=== PATIENT | female | born 1965 | race Caucasian/White ===

== ENCOUNTER 2017-03-10 13:59 | Emergency (ER) | payer BC ==
--- NOTE | 2017-03-10 15:43 | UC ---
Respiratory Complaint HPI - HPI Summary HPI Summary: 51 yo female with cough and fever x3 days has had similar symtpoms on and off x 1-2 months had pneumonia - History of Current Complaint Chief Complaint: UCRespiratory Stated Complaint: COUGH,BODYACHES Time Seen by Provider: 03/10/17 15:16 Hx Obtained From: Patient Hx Last Menstrual Period: 02/28/2017 Onset/Duration: Gradual Onset, Lasting Days Timing: Constant Severity Initially: Mild Severity Currently: Moderate Pain Intensity: 4 Pain Scale Used: 0-10 Numeric Character: Cough: Nonproductive Aggravating Factors: Nothing, Other Associated Signs And Symptoms: Positive: Fever, Chills - Allergies/Home Medications Allergies/Adverse Reactions: Allergies Allergy/AdvReac Type Severity Reaction Status Date / Time BEE STINGS Allergy Anaphylatic Uncoded 03/10/17 14:13 Shock Home Medications: Home Medications GuaiFENesin DM* [Robitussin DM*] 5 ml PO Q6H PRN 03/10/17 [History Confirmed ] PMH/Surg Hx/FS Hx/Imm Hx Previously Healthy: Yes - Surgical History Surgical History: Yes Surgery Procedure, Year, and Place: About 2001 RIGHT KNEE SURGERY - Family History Known Family History: Positive: Hypertension - Social History Alcohol Use: None Substance Use Type: None Smoking Status (MU): Never Smoked Tobacco Review of Systems Constitutional: Fever, Chills, Fatigue Skin: Negative Eyes: Negative ENT: Nasal Discharge, Sinus Congestion Respiratory: Cough Cardiovascular: Negative Gastrointestinal: Negative Genitourinary: Negative Motor: Negative Neurovascular: Negative Musculoskeletal: Negative Neurological: Negative Psychological: Negative Is Patient Immunocompromised?: No All Other Systems Reviewed And Are Negative: Yes Physical Exam Triage Information Reviewed: Yes Appearance: Well-Appearing, No Pain Distress, Well-Nourished Vital Signs: Initial Vital Signs Temp 101.2 F 03/10/17 14:15 Pulse 92 03/10/17 14:15 Resp 18 03/10/17 14:15 BP 140/94 03/10/17 14:15 Pulse Ox 96 03/10/17 14:15 Vital Signs Reviewed: Yes Eyes: Positive: Conjunctiva Clear ENT: Positive: Hearing grossly normal, Nasal drainage Neck: Positive: Supple, Nontender, No Lymphadenopathy Respiratory: Positive: Lungs clear, Normal breath sounds, No respiratory distress, No accessory muscle use Cardiovascular: Positive: RRR, No Murmur Musculoskeletal: Positive: ROM Intact, No Edema Neurological Exam: Normal Neurological: Positive: Alert UC Diagnostic Evaluation - Laboratory O2 Sat by Pulse Oximetry: 96 - normal/not hypoxic - Radiology Xray Interpretation: Positive (See Comments) - IMPRESSION: Alveolar consolidation at the RIGHT middle lobe concerning for pneumonia given Radiology Interpretation Completed By: Radiologist Respiratory Course/Dx - Differential Dx/Diagnosis Provider Diagnoses: pneumonia. Bronchospasm Discharge - Discharge Plan Condition: Stable Disposition: HOME Prescriptions: DOXYcycline CAP(*) [DOXYcycline 100MG CAP(*)] 100 mg PO BID #20 cap Patient Education Materials: Pneumonia (ED) Forms: *Work Release Referrals: Nasra Peacock MD [Primary Care Provider] - 2 Weeks (follow up chest xr is recommended by radiologist) Additional Instructions: use inhaler as directed recheck for new or worsening symptoms recheck Monday if still febrile
[2017-03-10] MEDS ORDERED: Albuterol 2.5 MG/3 ML NEB.SOL* (0.083%) INH ONE (15:46)
[2017-03-10] MEDS ORDERED: Ipratropium 0.5MG/2.5ML NEB* 0.5 MG/2.5 ML NEB.SOLN INH ONE (15:46)
--- NOTE | 2017-03-10 16:10 | RAD ---
INDICATION: Cough, fever. History of tobacco use. COMPARISON: June 20, 2007 TECHNIQUE: Dual energy PA and routine lateral views of the chest were obtained. REPORT: Unchanged small probable calcified granuloma at the RIGHT lower lung zone compared with the 2008 exam without concern. Mild alveolar consolidation at the RIGHT infrahilar level likely involving the RIGHT middle lobe concerning for pneumonia given the clinical context. Negative for pleural effusion or pneumothorax. The heart, pulmonary vasculature, and mediastinal contours are unremarkable. IMPRESSION: Alveolar consolidation at the RIGHT middle lobe concerning for pneumonia given the clinical context. Radiographic follow-up after therapy suggested to assess for resolution.
[2017-03-10] MEDS ORDERED: Albuterol HFA INHALER* 8 gm MDI INH ONE (16:50)
[2017-03-10 17:42] VITALS: BP 155/88
== END 2017-03-10 17:10 | disposition home or self-care (01) ==
LOC: UCEAST 13:59
DX: J18.9 Pneumonia, unspecified organism (principal); J98.01 Acute bronchospasm; Z91.030 Bee allergy status
CPT/HCPCS: 71046; 87502; 99212; A9270-GY; G0463; J7644

== ENCOUNTER 2017-10-03 16:47 | Emergency (ER) | payer BC, OTHER ==
--- OUTSIDE RECORDS SUMMARY | 2017-10-03 16:51 | XMS REPORT ---
:1965 External Reference #:[id number] Author Organization [facility] Address [address] [place] [address] Phone [phone] Care Team Providers Name Role Phone Martha Nj M.D. 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 Primary Care Physician Unavailable Payers Type Date Identification Numbers Payment Provider Subscriber Commercial Effective: Policy Number: [id number] [place] Plan Janette Roberts 2017 PayID: [id number] [address] [place] [address] Problems Date Description Provider Status Onset: 08/07/2017 Elevated blood-pressure reading without Martha Nj M.D. Active diagnosis of hypertension Onset: 08/07/2017 Obesity Martha jN M.D. Active Onset: 08/07/2017 Menopausal and postmenopausal disorders Martha Nj M.D. Active Onset: 08/17/2017 Impaired fasting glycaemia Martha Nj M.D. Active Onset: 08/17/2017 Hyperlipidemia Martha Nj M.D. Active Onset: 08/17/2017 Liver function tests abnormal Martha Nj M.D. Active Onset: 08/17/2017 Steatosis of liver Martha Nj M.D. Active Family History Date Family Member(s) Problem(s) Comments Father Diabetes Mellitus, II Father 80 Father Hypertension Father Hyperlipidemia Father Melanoma Father Sleep Apnea Mother No Current Problems Mother 76 Siblings 6 5 sis 1 bro First Brother Hypertension Social History Type Date Description Comments Marital Status . 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 [employer] Cigarette Use 08/07/2017 Former Cigarette Smoker 18-38, 1ppd ETOH Use Social Alcohol Smoking Patient is a former smoker Exercise Type/Frequency Exercises regularly walking 3x week Allergies, Adverse Reactions, Alerts Date Description Reaction Status Severity Comments 08/07/2017 NKDA active Medications Medication Date Status Form Strength Qnty SIG Indications Ordering Provider Dhea Active Apply To Unknown 00 Skin Daily Pregnenolone Active Apply To Unknown 00 Skin Daily Progesterone Active Apply To Unknown 00 Skin Daily Testosterone Active Apply To Unknown 00 Skin Daily Estradiol/Testos Active apply to Unknown terone 00 skin daily Biest Active Unknown 00 No Active 08/08/19 Hx Martha Medications 18 - [place], 09/20/19 M.DYousif 18 Progesterone Hx Capsules 100mg Unknown - 08/08/19 18 Vital Signs Date Vital Result Comment 09/19/2017 BP Systolic 136 mmHg BP Diastolic 80 mmHg Heart Rate 74 /min Body Temperature 97.9 F Respiratory Rate 16 /min Height 63.5 inches 5'3.50" Weight 198.00 lb BMI (Body Mass Index) 34.5 kg/m2 08/17/2017 BP Systolic 140 mmHg BP Diastolic 100 mmHg Heart Rate 88 /min Body Temperature 97.8 F Respiratory Rate 18 /min Height 63.5 inches 5'3.50" Weight 195.00 lb BMI (Body Mass Index) 34.0 kg/m2 08/07/2017 BP Systolic 130 mmHg BP Diastolic 92 mmHg Heart Rate 80 /min Body Temperature 98.2 F Height 63.5 inches 5'3.50" Weight 195.00 lb BMI (Body Mass Index) 34.0 kg/m2 Results Test Date Test Result H/L Range Note Xray 09/13/2017 CT Abdomen & Pelvis <pending> W/Contrast Comprehensive Metabolic 08/11/2017 Sodium 140 mEq/L 134-149 Prof Potassium 4.3 mEq/L 3.6-5.5 Chloride 101 mEq/L 94-112 Carbon Dioxide 21 mEq/L 21-32 Glucose 159 mg/dL High 70-105 1 BUN 12 mg/dL 6-26 Creatinine 0.7 mg/dL 0.6-1.4 BUN/Creat Ratio 17.1 CALC 8.0-36.0 Calcium 9.2 mg/dL 8.6-10.2 Total Protein 6.9 g/dL 6.4-8.3 Albumin 4.5 g/dL 3.8-5.5 Globulin 2.4 g/dL 2.0-4.8 A/G Ratio 1.9 CALC 0.6-2.3 Alk. Phosphatase 72 U/L 30-110 Alt (SGPT) 123 U/L High 7-35 2 Ast (Sgot) 61 U/L High 5-34 3 Total Bilirubin 0.5 mg/dL 0.2-1.3 GFR Non- >60 ml/min/1.73m^ >=60 GFR >60 ml/min/1.73m^ >=60 Lipid Profile 08/11/2017 Cholesterol 253 mg/dL High 120-200 Triglycerides 309 mg/dL High 30-200 HDL Cholesterol 46 mg/dL 30-85 LDL (Calculated) 145 CALC High 0-129 VLDL Cholesterol 62 mg/dL High 0-50 HDL Risk Factor 5.5 CALC High 0.0-4.4 Laboratory test finding 08/11/2017 TSH 3.39 mIU/L 0.50-6.00 Free T4 0.97 ng/dL 0.75-1.54 Vitamin B-12 919 pg/mL 230-1050 CBC Electronic Fma 08/11/2017 WBC 5.5 x10^3/UL 4.0-10.0 RBC 4.67 x10^6/UL 3.93-6.00 HGB 14.2 g/dL 12.0-17.0 HCT 40 % 35-50 MCV 84.8 fL 80.0-95.0 MCH 30.4 pg 25.6-32.2 MCHC 35.9 g/dL 32.2-36.0 RDW-CV 11.7 % 11.6-14.4 PLT 230 x10^3/UL 163-400 MPV 9.4 fL 9.4-12.4 Tommy# 2.99 x10^3/UL 1.56-6.13 Lymph# 1.77 x10^3/UL 1.18-3.74 Tarrant# 0.50 x10^3/UL 0.24-0.82 Eos # 0.2 x10^3/UL 0.0-0.5 Baso # 0.06 x10^3/UL 0.01-0.08 Tommy% 54.3 % 34.0-70.0 Lymph % 32.2 % 20.0-52.0 Tarrant% 9.1 % 5.0-12.0 Eos% 3.1 % 0.7-7.0 Baso% 1.1 % 0.1-1.2 Laboratory test 08/11/2017 Hemoglobin A1c (Fma) 6.0% % High 4.1-5.7 finding Tick-Borne Disease AB 08/11/2017 Anaplasma phagocytophilium <1:64 titer < 1:64 4 Panel Babesiosis Evaluation <1:64 titer <1:64 5 Ehrlichia chaffeensis IgG AB <1:64 titer <1:64 6 Lyme Disease Serology Negative Negative 7 Lyme Western Blot 08/11/2017 Lyme Disease IgG Ab WB Negative Negative Lyme Disease IgG Bands Present No bands detecte <SEE NOTE> kDa 8 Lyme Disease IgM Ab WB Negative Negative Lyme Disease IgM Bands Present No bands detecte <SEE NOTE> kDa 9 Lyme Disease Interpretation See Comment 10 Laboratory test finding 08/07/2017 Cytology Thinprep SEE RESULT BELOW 11 w/rfx(cmc) 1 RESULTS VERIFIED BY REPEAT ANALYSIS 2 RESULTS VERIFIED BY REPEAT ANALYSIS 3 RESULTS VERIFIED BY REPEAT ANALYSIS 4 ADDITIONAL INFORMATION This test was developed using an analyte specific reagent. Its performance characteristics were determined by [facility] in a manner consistent with CLIA requirements. This test has not been cleared or approved by the U.S. Food and Drug Administration. 5 ADDITIONAL INFORMATION This test was developed using an analyte specific reagent. Its performance characteristics were determined by [facility] in a manner consistent with CLIA requirements. This test has not been cleared or approved by the U.S. Food and Drug Administration. 6 ADDITIONAL INFORMATION This test was developed using an analyte specific reagent. Its performance characteristics were determined by [facility] in a manner consistent with CLIA requirements. This test has not been cleared or approved by the U.S. Food and Drug Administration. 7 No evidence of antibodies to B. burgdorferi detected. False negative results may occur in recently infected patients (<=2 weeks) due to low or undetectable antibody levels to B. burgdorferi. If recent exposure is suspected, a second sample should be collected and tested in 2-4 weeks. Test Performed by: [facility] - [address] [address] 8 No bands detected 9 No bands detected 10 Specific serologic response to B. burgdorferi infection is not detected, but cannot rule out early infection during which low or undetectable antibody levels to B. burgdorferi may be present. If clinically indicated, a new serum specimen should be submitted in 7-14 days. ADDITIONAL INFORMATION CDC criteria require >=5 bands for IgG or >=2 bands for IgM for the Immunoblot to be considered positive. Bands (e.g.,p41) may be detected in patients without Lyme disease, and patterns not meeting the CDC criteria should be interpreted with caution. Immunoblot should be ordered only on specimens that are positive or equivocal by a FDA-licensed Lyme disease antibody screening test (e.g., EIA). Test Performed by: [facility] - [address] [address] 11 SEE RESULT BELOW Name: JANETTE ROBERTS : [address]: Martha Nj MD Acct: [id number] Unit: [id number] AGE: 51 Location: [facility] Re08/08/17 SEX: F Status: REG REF SPEC: [id number] WILLOW: 08/07/17-1705 [facility] DR: Martha Nj MD REQ: [id number] RECD: 08/08/17 STATUS: SOUT _ ORDERED: TP IMAGE ANALYS, HPV/Thin Prep Negative for Intraepithelial lesion or Malignancy A. Ectocervical/Endocervical Specimen Adequacy: Satisfactory of evaluation Transformation zone component identified Patient Information: HPV: High risk HPV RNA testing regardless of pap results. Actual Specimen Date: 08/07/17 Spec Date if unknown: yrs ?: N Post Menopausal?: N Hysterectomy?: N Date Time Test Result Flag (u) Normal Range 08/08/17 358 @ HPV RNA Negative Negative @ @ The high-risk HPV types detected by the assay include: 16, @ 18, 31, 33, 35, 39, 45, 51, 52, 56, 58, 59, 66, and 68. Signed by and Reported on: BOBBI Sr (ASCP) [id number] This Pap test was evaluated with the assistance of the [employer] Test Imaging System. Due to cytologic findings at the vice president sales and marketing microscope, comprehensive manual rescreening by a Sales Representative [employer] may be required. The Pap Smear is a screening test designed to aid in the detection of premalignant and malignant conditions of the uterine cervix. It is not a diagnostic procedure and should not be used as the sole means of detecting cervical cancer. Both false- positive and false- negative reports do occur. Depending on your risk status, a Pap smear should be obtained and evaluated every 1-3 years. END OF REPORT DEPARTMENT OF PATHOLOGY, [address] [place] [address] Ramo Chaves M.D. Director [facility] # [id number] Procedures Date CPT Code Description Status 08/22/2017 Mammogram Completed Encounters Type Date Location Provider CPT E/M Dx Office Visit 08/17/2017 3:45p [facility] Office Zohreh Alanis [facility] [address] R10.811 Office Visit 08/07/2017 3:50p Main Office Martha Nj M.D. 84791 Z00.00 Z12.11 Z12.31 R03.0 N95.9 E66.9 R53.83 M25.50 R06.83 R05 Plan of Care 09/19/2017 - [place], NPR10.811 Right upper quadrant abdominal dlljeiendgY53.9 Obesity, unspecifiedComments:Counseled on heart healthy diet and ltpetposJ11.5 Abnormal results of liver function studiesComments:Pt has a record of her LFTs over the years, ALT elevates and drops over the years, has been > 200in the past. US shows cysts that the CT does not show. 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 Questions which one is more accurate. Discussed with patient that we need to discuss with the radiologist the next steps to see if further imaging is necessary to clarify the findings vs wait a time interval and repeat CT. Call placed to [facility] radiology, closed for the evening will try tomorrow. 09/20/17 at this time, MD Jesus - out of office MD Piero took call discussed case with him to compare US and CT ~l_a href=~[email or web address]~a_[email or web address]~a_to=[email or web address]~q_~g_Document: 08/22/17 - Gall Bladder US~l_/a~g_~l_a href=~[email or web address] [email or web address]~a_from=[email or web address]~a_to=[email or web address]~q_~g_Document: 09/13/17 - CT Abd/ Pel W~l_/a~g_~l_a href=~[email or web address] link_ret~a_from=0^0~a_to=[email or web address]~q_~g_Document: 08/22/17 - US Gall Bladder~l_ /a~g_He advised: what was found on US not picked up on CT, states he would get an MRI of the liver thinks fatty liver may be masking low density infiltrates just to make sure nothing is going on and have a conclusion to the findings on US vs CTAllComments:~B_~U_Medication Management~b_~u_ Patient Understands medications she's taking? Yes No Are there Barriers to Adherence? Yes No Has the patient been asked about herbal supplements and therapies, and OTC meds? Yes No ~B_~U_Care Plan~b_~u_1. Patient has been queried about patient's goals/preferences and functional/lifestyle goals at relevant visits. If relevant, describe: na2. Treatment goals as explained to the patient: above3. Are there barriers to meeting treatment goals? Yes No If Yes, please describe:4. Self-Management goals as described to the patient: Yes NoFollow up:As always, we strongly encourage a healthy diet and making physical activity a part of your every day life. If you have questions about how or where to start, please contact the office.
[2017-10-03 17:27] VITALS: BP 145/91
--- NOTE | 2017-10-03 17:36 | UC ---
HPI Febrile Illness - HPI Summary HPI Summary: The pt s is a 52 y/o female presenting to c/o of a subjective fever for the last 3 days reaching 103 at the highest. She notes body aches, sore throat, LE myalgia, tongue soreness, intermittent occipital VANCE, cough, and joint pain. She denies ear pain, rhinorrhea, abdominal pain, dysuria, and diarrhea. The pt did not get out of bed 2 days ago and is concerned about PNA. She is scheduled for a liver and gall bladder MRI and is concerned about taking Tylenol before the procedure. - History of Current Complaint Chief Complaint: UCGeneralIllness Time Seen by Provider: 10/03/17 17:21 Hx Obtained From: Patient Hx Last Menstrual Period: 02/28/2017 Onset/Duration: Started Days Ago - 3 days Timing: Constant Current Severity: Severe Pain Intensity: 8 Pain Scale Used: 0-10 Numeric Associated Signs and Symptoms: Negative - ear pain, rhinorrhea, abdominal pain, dysuria, and diarrhea, Cough, Headache, Joint Pain, Myalgia - LE, Sore Throat, Other: - Body aches, tongue soreness, - Allergy/Home Medications Allergies/Adverse Reactions: Allergies Allergy/AdvReac Type Severity Reaction Status Date / Time BEE STINGS Allergy Anaphylatic Uncoded 10/03/17 17:27 Shock Home Medications: Home Medications Ibuprofen 400 mg PO 10/03/17 [History] PMH/Surg Hx/FS Hx/Imm Hx Previously Healthy: Yes - Denies any PMHx of DM, CA, cardiac disorders and thyroid disorders - Surgical History Surgical History: Yes Surgery Procedure, Year, and Place: About 2001 RIGHT KNEE SURGERY - Family History Known Family History: Positive: Hypertension, Other - Breast CA - Social History Occupation: Employed Full-time Lives: With Family Alcohol Use: None Substance Use Type: None Smoking Status (MU): Never Smoked Tobacco Review of Systems Constitutional: Other - Positive: Body aches, ENT: Negative - Ear pain , rhinnorhea, Sore Throat, Other - Positive: Tongue soreness, Respiratory: Cough Gastrointestinal: Negative - Abd pain, diarrhea Genitourinary: Negative - Dysuria Musculoskeletal: Myalgia - LE, Other: - Positive: Joint pain Neurological: Headache - Occipital All Other Systems Reviewed And Are Negative: Yes Physical Exam - Summary Physical Exam Summary: General: Mildly ill-appearing, no pain distress Skin: warm, color reflects adequate perfusion, dry Head: normal Eyes: EOMI, JANET ENT: erythematous posterior pharynx Neck: supple, nontender Respiratory: CTA, breath sounds present Cardiovascular: RRR Abdomen: soft, nontender Bowel: present Musculoskeletal: normal, strength/ROM intact Neurological: sensory/motor intact, A&O x3 Psychological: affect/mood appropriate Triage Information Reviewed: Yes Vital Signs: Initial Vital Signs Temp 98.2 F 10/03/17 17:25 Pulse 104 10/03/17 17:25 Resp 18 10/03/17 17:25 BP 145/91 10/03/17 17:25 Pulse Ox 96 10/03/17 17:25 Vital Signs Reviewed: Yes Course/Dx - Course Course Of Treatment: DISCUSSED VIRAL VERSES BACTERIAL INFECTION AND THE ROLE OF ANTIBIOTICS. THE PATIENT WISHES TO BE ON ANTIBIOTICS AT THIS TIME. NO OBVIOUS FOCAL SOURCE OF INFECTION. ABD IS NON TENDER. NECK IS SUPPLE. DISCUSSED SIGNS/ SX OF MENINGITIS; THE PATIENT DOES NOT CLINICALLY HAVE MENIGITIS AT THIS TIME, WITH THE PATIENT; SHE WILL GO TO THE EMERGENCY DEPARTMENT WITH ANY MENINGITIS SX OR WORSENING. DISCUSSED OBTAINING LAB WORK; THE PATIENT DECLINED AT THIS TIME. - Diagnoses Clinic Provider Diagnoses: FEVER. MYALGIAS Discharge - Sign-Out/Discharge Documenting (check all that apply): Patient Departure - DC All imaging exams completed and their final reports reviewed: No Studies - Discharge Plan Condition: Stable Disposition: HOME Prescriptions: DOXYcycline CAP(*) [DOXYcycline 100MG CAP(*)] 100 mg PO BID #28 cap Patient Education Materials: Fever in Adults (ED), Musculoskeletal Pain (ED) Referrals: Martha Nj MD [Primary Care Provider] - Additional Instructions: FOLLOW UP WITH YOUR DOCTOR. GO TO THE EMERGENCY DEPARTMENT FOR ANY WORSENING OF YOUR CONDITION; YOU FEEL ILL , STIFF NECK OR QUESTIONS OR CONCERNS. - Billing Disposition and Condition Condition: STABLE Disposition: Home - Attestation Statements Document Initiated by Scribe: Yes Documenting Scribe: Yusra Argueta Provider For Whom Dafneibe is Documenting (Include Credential): Dr. Gagan Peter MD Scribe Attestation: Yusra Johnson scribed for Dr. Gagan Peter MD on 10/03/17 at 1917. Scribe Documentation Reviewed: Yes Provider Attestation: The documentation as recorded by the Yusra obando accurately reflects the service I personally performed and the decisions made by me, Dr. Gagan Peter MD
== END 2017-10-03 17:55 | disposition home or self-care (01) ==
LOC: UCEAST 16:47
DX: R50.9 Fever, unspecified (principal); M79.1 Myalgia
CPT/HCPCS: 99212; G0463

== ENCOUNTER 2017-10-04 13:56 | Emergency (ER) | payer BC, OTHER ==
[2017-10-04] MEDS ORDERED: NS 0.9% 1000 ML* 1,000 ML IV ONE (14:28)
[2017-10-04] MEDS ORDERED: Ondansetron INJ* 2 MG/ML VIAL IV ONE (14:28)
[2017-10-04] MEDS ORDERED: Ketorolac INJ* 30 MG/ML 1 ML VIAL IV PUSH ONE (14:28)
--- NOTE | 2017-10-04 14:36 | ED ---
Complex/Multi-Sys Presentation - HPI Summary HPI Summary: This patient is a 52 year old F presenting to ED with a chief complaint of fever since 10/01/17. 103.2 was the highest reading. The patient rates the pain 6 /10 in severity. Symptoms aggravated by nothing. Symptoms alleviated by nothing. Patient reports intermittent RUQ tenderness, body aches (since 10/01), migraine (since 09/30), back pain, nausea, diarrhea, and dark urine (resolved now ). Patient denies cough, congestion, sinus pain, and sore throat. Went to last night and was given abx. She thinks its her gall bladder but has never found anything over the past year. - History Of Current Complaint Chief Complaint: EDFever Time Seen by Provider: 10/04/17 14:05 Hx Obtained From: Patient Onset/Duration: Sudden Onset, Lasting Days, Still Present Timing: Constant, Days Severity Currently: Moderate Severity Initially: Moderate Aggravating Factor(s): nothing Alleviating Factor(s): nothing Associated Signs And Symptoms: Positive: Other - Patient reports fever since , intermittent RUQ tenderness, body aches (since 10/01), migraine (since ), back pain, nausea, diarrhea, and dark urine (resolved now). Patient denies cough, congestion, sinus pain, and sore throat. - Allergies/Home Medications Allergies/Adverse Reactions: Allergies Allergy/AdvReac Type Severity Reaction Status Date / Time BEE STINGS Allergy Anaphylatic Uncoded 10/04/17 14:02 Shock PMH/Surg Hx/FS Hx/Imm Hx Endocrine/Hematology History: Denies: Hx Diabetes, Hx Thyroid Disease Cardiovascular History: Denies: Hx Hypertension Respiratory History: Denies: Hx Asthma, Hx Chronic Obstructive Pulmonary Disease (COPD) GI History: Denies: Hx Ulcer - Surgical History Surgery Procedure, Year, and Place: About 2001 RIGHT KNEE SURGERY Infectious Disease History: No Infectious Disease History: Denies: Hx Clostridium Difficile, Hx Hepatitis, Hx Human Immunodeficiency Virus (HIV), Hx of Known/Suspected MRSA, Hx Shingles, Hx Tuberculosis, Hx Known/ Suspected VRE, Hx Known/Suspected VRSA, History Other Infectious Disease, Traveled Outside the [place] in Last 30 Days - Family History Known Family History: Positive: Hypertension, Other - Breast CA - Social History Alcohol Use: Occasionally Substance Use Type: Reports: None Hx Tobacco Use: No Smoking Status (MU): Former Smoker Review of Systems Positive: Fever - since 10/01/17 Positive: Other - denies congestion and sinus pain. Negative: Sore Throat Negative: Cough Positive: Abdominal Pain - intermittent RUQ tenderness, Diarrhea, Nausea Positive: other - dark urine (resolved now) Positive: Other - back pain, body aches (since 10/01) Neurological: Other - migraine (since 09/30) All Other Systems Reviewed And Are Negative: Yes Physical Exam - Summary Physical Exam Summary: Appearance: Well appearing, no pain distress Skin: warm, dry, reflects adequate perfusion Head/face: normal Eyes: EOMI, JANET ENT: Posterior pharynx has spotty erythema Neck: supple, non-tender Respiratory: CTA, breath sounds present Cardiovascular: RRR, pulses symmetrical Abdomen: non-tender, soft Bowel Sounds: present Musculoskeletal: normal, strength/ROM intact Neuro: normal, sensory motor intact, A&Ox3 Triage Information Reviewed: Yes Vital Signs On Initial Exam: Initial Vitals Temp Pulse Resp BP Pulse Ox 101.4 F 102 19 142/91 95 10/04/17 13:58 10/04/17 13:58 10/04/17 13:58 10/04/17 13:58 10/04/17 13:58 Vital Signs Reviewed: Yes Diagnostics - Vital Signs Vital Signs Temp Pulse Resp BP Pulse Ox 10/04/17 13:58 101.4 F 102 19 142/91 95 - Laboratory Result Diagrams: 10/04/17 14:58 10/04/17 14:58 Lab Statement: Any lab studies that have been ordered have been reviewed, and results considered in the medical decision making process. - Radiology CXR Radiology Interpretation Completed By: Radiologist - Findings suggestive of early right lower lobe pneumonia. ED physician has reviewed this radiology report. Re-Evaluation - Re-Evaluation First Eval Re-Evaluation Time: 15:51 Change: Improved Comment: Discussed results and plan for discharge with the patient. Complex Multi-Symp Course/Dx Course Of Treatment: Patient with intermittent fevers and a history of pneumonia back in February. Today she proved to have an infiltrate in her right lower lobe. Laboratories are fairly benign. She is feeling better after IV fluids, Toradol. She is already on doxycycline and we will continue this. She' ll follow up closely primary care physician. - Diagnoses Differential Diagnoses/HQI/PQRI: Metabolic Abnormality, Sepsis, Urinary Tract Infection, Other - Pneumonia, Lyme disease, bacteremia Provider Diagnoses: Right lower lobe pneumonia Discharge - Sign-Out/Discharge Documenting (check all that apply): Patient Departure - Discharge Plan Condition: Improved Disposition: HOME Prescriptions: Albuterol HFA INHALER* [Ventolin HFA Inhaler*] 2 puff INH Q4H PRN #1 mdi PRN Reason: Shortness Of Breath Famotidine TAB* [Pepcid 20 MG TAB*] 20 mg PO BID PRN #20 tab PRN Reason: stomach upset guaiFENesin [Mucinex] 600 mg PO BID #20 tab.er.12h Patient Education Materials: Community Acquired Pneumonia (ED) Referrals: Martha Nj MD [Primary Care Provider] - Additional Instructions: Drink plenty of fluids. Continue doxycycline antibiotic through the entire course. This will make you sun sensitive so wear appropriate clothing. Tylenol , ibuprofen as needed for fever. Doxycycline can also upset her belly. Pepcid was prescribed for this. Call your doctor today to schedule follow-up appointment in the next several days. Return to the ER if worse, short of breath, new symptoms or other concerns. In February you had a right middle lobe pneumonia and were treated with doxycycline. - Billing Disposition and Condition Condition: IMPROVED Disposition: Home - Attestation Statements Document Initiated by Ken: Yes Documenting Scribe: Robert Sims Provider For Whom Ken is Documenting (Include Credential): Jose Reyes MD Scribe Attestation: Robert Johnson, scribed for Jose Reyes MD on 10/04/17 at 1702. Scribe Documentation Reviewed: Yes Provider Attestation: The documentation as recorded by the Robert obando accurately reflects the service I personally performed and the decisions made by me, Jose Reyes MD
--- NOTE | 2017-10-04 14:59 | RAD ---
Indication: Fever. 2 views the chest including dual energy PA views are reviewed and compared to previous exam dated March 10, 2017. There is suggestion of increased density in the right lung base posteriorly suggestive of early right basilar pneumonia. IMPRESSION: Findings suggestive of early right lower lobe pneumonia.
[2017-10-04 15:10] LABS: ABS Basophils 0 10^3/ul (0-0.2); ABS Eosinophils 0 10^3/ul (0-0.6); ABS Lymphocytes 1.2 10^3/ul (1.0-4.8); ABS Monocytes 0.8 10^3/ul (0-0.8); ABS Nucleated RBC 0 10^3/ul; Eosinophil % 0.3 % (0-6); Hematocrit 41 % (35-47); Hemoglobin 14.4 g/dl (12.0-16.0); Lymphocyte % 14.7 % (25-47); Mean Corpuscular HGB Conc 36 g/dl (31-36); Mean Corpuscular Hemoglobin 30 pg (27-31); Mean Corpuscular Volume 86 fL (80-97); Mean Platelet Volume 7.6 um3 (7.4-10.4); Nucleated Red Blood Cells % 0.1; Platelet Count 237 10^3/ul (150-450); Red Blood Count 4.75 10^6/ul (4.00-5.40); Red Cell Distribution Width 12 % (10.5-15)
[2017-10-04 15:23] LABS: INR 0.97 (0.77-1.02)
[2017-10-04 15:30] LABS: EGFR Non-African American 88.2 (>60)
[2017-10-04 16:09] VITALS: BP 150/97
== END 2017-10-04 16:24 | disposition home or self-care (01) ==
LOC: ED 13:56
DX: J18.9 Pneumonia, unspecified organism (principal); Z91.030 Bee allergy status; Z87.891 Personal history of nicotine dependence
CPT/HCPCS: 36415; 71046; 80053; 83605; 83690; 84702; 85025; 85610; 85730; 86140; 87040; 87651; 96374; 96375; 99283; J1885; J2405

== ENCOUNTER 2017-10-05 13:47 | Emergency (ER) | payer BC ==
--- NOTE | 2017-10-05 14:55 | ED ---
Headache - HPI Summary HPI Summary: 52 y/o female presents to the ED accompanied by her sister c/o severe pain in head and neck for several days, still present. Neck pain has moved around, per pt. Currently pain is mild. VANCE aggravated with loud sounds. Associated sx: fever and body aches starting four days ago, resolved yesterday. Pt has been taking Ibuprofen for fever. Dx PNA at Urgent Care, started abx two days ago. Seen in ED yesterday for the same symptoms. Pt is worried that "medications are not getting to the root of the problem. - History Of Current Complaint Chief Complaint: EDHeadache Stated Complaint: PAIN IN HEAD & NECK-HERE YESTERDAY Time Seen by Provider: 10/05/17 14:40 Hx Obtained From: Patient Hx Last Menstrual Period: 02/28/2017 Onset/Duration: Started days ago, Still Present Initially Headache Was: Severe Currently Pain Is: Mild Timing: Constant Aggravating Factor: Other - loud sounds Allevating Factors: Nothing Associated Signs And Symptoms: Fever, Neck Pain - Allergies/Home Medications Allergies/Adverse Reactions: Allergies Allergy/AdvReac Type Severity Reaction Status Date / Time BEE STINGS Allergy Anaphylatic Uncoded 10/05/17 14:13 Shock Home Medications: Home Medications Ibuprofen TAB* [Advil TAB*] 400 mg PO Q6H PRN 10/05/17 [History Confirmed ] guaiFENesin [Mucinex] 600 mg PO BID 10/05/17 [History Confirmed 10/05/17] PMH/Surg Hx/FS Hx/Imm Hx Previously Healthy: No Endocrine/Hematology History: Denies: Hx Diabetes, Hx Thyroid Disease Cardiovascular History: Denies: Hx Hypertension Respiratory History: Denies: Hx Asthma, Hx Chronic Obstructive Pulmonary Disease (COPD) GI History: Denies: Hx Ulcer - Surgical History Surgery Procedure, Year, and Place: About 2001 RIGHT KNEE SURGERY Infectious Disease History: No Infectious Disease History: Denies: Hx Clostridium Difficile, Hx Hepatitis, Hx Human Immunodeficiency Virus (HIV), Hx of Known/Suspected MRSA, Hx Shingles, Hx Tuberculosis, Hx Known/ Suspected VRE, Hx Known/Suspected VRSA, History Other Infectious Disease, Traveled Outside the [place] in Last 30 Days - Family History Known Family History: Positive: Hypertension, Other - Breast CA - Social History Alcohol Use: Occasionally Substance Use Type: Reports: None Hx Tobacco Use: No Smoking Status (MU): Former Smoker Review of Systems Positive: Fever Eyes: Negative ENT: Negative Cardiovascular: Negative Respiratory: Negative Gastrointestinal: Negative Genitourinary: Negative Musculoskeletal: Other - neck pain Positive: Myalgia Skin: Negative Positive: Headache Psychological: Normal All Other Systems Reviewed And Are Negative: No Physical Exam - Summary Physical Exam Summary: Appearance: Alert, conversive, nontoxic appearing Skin: Warm, dry, no mottling, no rashes, no contusions HEENT: EOMI, PERRL, dry mucous membranes Neck: No masses on the neck, supple Respiratory: Clear to auscultation, breath sounds present, no rales, no rhonchi , no wheezes Cardiovascular: RRR, pulses are symmetrical in both lower and upper extremities Abdomen: Soft, non-tender Bowel Sounds: Present Musculoskeletal: No CVA tenderness, no obvious deformity, moving all extremities in a grossly normal manner Neurological: A&Ox3, CN II-XII Intact, moving all extremities symmetrically. No meningeal signs. Psychiatric: Normal affect and mood Triage Information Reviewed: Yes Vital Signs On Initial Exam: Initial Vitals Temp Pulse Resp BP Pulse Ox 98.1 F 85 20 154/86 97 10/05/17 14:08 10/05/17 14:08 10/05/17 14:08 10/05/17 14:08 10/05/17 14:08 Vital Signs Reviewed: Yes Diagnostics - Vital Signs Vital Signs Temp Pulse Resp BP Pulse Ox 10/05/17 14:08 98.1 F 85 20 154/86 97 - Laboratory Result Diagrams: 10/05/17 15:46 10/05/17 15:46 Lab Statement: Any lab studies that have been ordered have been reviewed, and results considered in the medical decision making process. - Radiology CXR Radiology Interpretation Completed By: Radiologist - PROBABLE SMALL RIGHT LOWER LOBE INFILTRATE WITH WORSENING Re-Evaluation - Re-Evaluation 1 Re-Evaluation Time: 17:19 Comment: discuss test results, plan to d/c Headache Course/Dx - Course Assessment/Plan: 52 y/o female with severe head and neck pain. Seen at Urgent care two days ago, ED yesterday for the same sx. Started Abx 2 days ago. CXR SHOWS PROBABLE SMALL RIGHT LOWER LOBE INFILTRATE WITH WORSENING. Labs repeated in ED today. Pt will be d/c home. - Diagnoses Provider Diagnoses: Pneumonia Discharge - Sign-Out/Discharge Documenting (check all that apply): Patient Departure - Discharge Plan Condition: Stable Disposition: HOME Patient Education Materials: Dehydration (ED), Pneumonia (ED) Referrals: Martha Nj MD [Primary Care Provider] - Additional Instructions: continue to take all medications as previously instructed. Drink plenty of fluids. return if worse or any new symptoms. Please follow up with your primary care physician by Monday. - Billing Disposition and Condition Condition: STABLE Disposition: Home - Attestation Statements Document Initiated by Scribe: Yes Documenting Scribe: Brant Arriaga Provider For Whom Dafneibe is Documenting (Include Credential): Daylin Atkinson MD Scribe Attestation: Brant Johnson, scribed for Daylin Atkinson MD on 10/05/17 at 1815. Scribe Documentation Reviewed: Yes Provider Attestation: The documentation as recorded by the Brant obando accurately reflects the service I personally performed and the decisions made by , Daylin Atkinson MD
[2017-10-05] MEDS ORDERED: Ketorolac INJ* 30 MG/ML 1 ML VIAL IV PUSH ONE (15:35)
[2017-10-05] MEDS ORDERED: NS 0.9% 1000 ML* 1,000 ML IV ONE (15:35)
[2017-10-05 15:51] LABS: ABS Basophils 0.1 10^3/ul (0-0.2); ABS Eosinophils 0.1 10^3/ul (0-0.6); ABS Lymphocytes 1.7 10^3/ul (1.0-4.8); ABS Monocytes 0.9 10^3/ul (0-0.8); ABS Neutrophils 3.7 10^3/ul (1.5-7.7); ABS Nucleated RBC 0 10^3/ul; Eosinophil % 1.2 % (0-6); Hematocrit 38 % (35-47); Hemoglobin 13.6 g/dl (12.0-16.0); Lymphocyte % 25.6 % (25-47); Mean Corpuscular HGB Conc 35 g/dl (31-36); Mean Corpuscular Hemoglobin 30 pg (27-31); Mean Corpuscular Volume 85 fL (80-97); Mean Platelet Volume 7.5 um3 (7.4-10.4); Nucleated Red Blood Cells % 0; Platelet Count 249 10^3/ul (150-450); Red Blood Count 4.51 10^6/ul (4.00-5.40); Red Cell Distribution Width 12 % (10.5-15); White Blood Count 6.5 10^3/ul (3.5-10.8)
[2017-10-05 16:14] LABS: EGFR Non-African American 101.5 (>60)
--- NOTE | 2017-10-05 16:29 | RAD ---
INDICATION: Cough COMPARISON: October 02, 2017 TECHNIQUE: An AP portable view obtained at 1607 hours is submitted. FINDINGS: Bones/Soft Tissues: There are no acute bony findings. Cardiomediastinal: The cardiomediastinal silhouette is normal. Lungs: There is a suspected developing infiltrate in the medial right lung base. There may be minimal worsening although the current examination is a portable image of the prior examination was a two-view examination There is a tiny calcified granuloma. Pleura: There are no pleural effusions. Other: None IMPRESSION: PROBABLE SMALL RIGHT LOWER LOBE INFILTRATE WITH WORSENING
[2017-10-05 17:53] VITALS: BP 140/90
== END 2017-10-05 17:52 | disposition home or self-care (01) ==
LOC: ED 13:47
DX: J18.9 Pneumonia, unspecified organism (principal); Z87.891 Personal history of nicotine dependence
CPT/HCPCS: 36415; 71045; 80053; 83605; 85025; 96361; 96374; 99282; J1885